=== PATIENT | female | born 1950 | race Caucasian/White ===

== ENCOUNTER 2020-05-30 11:21 | Outpatient (CLI) | payer MEDICARE, SELFPAY ==
[2020-05-30 11:58] LABS: Alanine Aminotransferase 20 U/L (4-35); Albumin Level 4.2 g/dL (3.5-5.1); Alkaline Phosphatase 124 U/L (38-126); Anion Gap 10.9 mmol/L (7-16); Aspartate Amino Transferase 23 U/L (14-36); Bilirubin,Total 0.3 mg/dL (0.2-1.3); Blood Urea Nitrogen 19 mg/dL (7-17); Calcium 9.6 mg/dL (8.4-10.2); Carbon Dioxide 25 mmol/L (22-30); Chloride 111 mmol/L (98-107); Cholesterol 191 mg/dL (0-200); Estimated Glomerular Filt Rate > 60; Glucose 107 mg/dL (65-105); HDL Direct 42 mg/dL; Potassium 3.9 mmol/L (3.4-5.0); Sodium 143 mmol/L (137-145); Triglycerides 175 mg/dL (<150)
[2020-05-30 12:08] LABS: LDL Cholesterol Direct 116 mg/dL
[2020-05-30 13:14] LABS: Vitamin D 25 Hydroxy 29.2 ng/mL
== END 2020-05-30 11:22 | disposition home or self-care (01) ==
LOC: ANHLAB 11:24
PROVIDERS: PCP Nurse Practitioner; Visit Provider Internal Medicine
DX: Z13.6 Encounter for screening for cardiovascular disorders (principal); Z79.899 Other long term (current) drug therapy; E55.9 Vitamin D deficiency, unspecified; E78.5 Hyperlipidemia, unspecified
CPT/HCPCS: 36415; 80053; 80061; 82306

== ENCOUNTER 2022-06-03 11:05 | Emergency (ER) | payer MEDICARE, SELFPAY ==
[2022-06-03] VITALS (12 sets, daily range): BP systolic 90–135; BP diastolic 60–77; PULSE 70–75; RESP 14–17; TEMP 36.3; O2SAT 96–100
--- NOTE | ~2022-06-03 | XR_ITS ---
EXAMINATION: XR abdomen/kub 1V DATE: 06/03/2022 15:15 INDICATION: Urolithiasis presenting with right-sided flank pain TECHNIQUE: A supine view of the abdomen on 2 radiographs was obtained. COMPARISON: KUB dated 08/06/[address] dated 06/22/2017 FINDINGS: 9 stones at the left kidney the largest measuring 5 mm . There are 3 new calcific lesions each measur ing 405 mm located along the course of the distal right ureter consistent with ureteral stones. More proximally at the level of the right pelvic brim are couple unchanged phleboliths along the right [place] vein. A few unchanged tiny calcification in the left hemipelvis likely combination of atheroscle rotic calcification and phleboliths. Normal bowel gas pattern. Lung bases are clear. Visualized bilat eral breast implants. Severe thoracolumbar spondylosis. IMPRESSION: 1. Left nephrolithiasis and three 4-5 mm distal right ureteral stones Reviewed, dictated and finalized at location A.
[2022-06-03 12:10] LABS: Appearance Urine Clear (Clear); Basophils Absolute Auto 0.1 K/mm3 (0.0-0.1); Basophils Percent Auto 0.5 % (0.2-1.2); Bilirubin Urine Negative (Negative); Blood Urine Negative (Negative); Color Urine Yellow (Yellow); Eosinophils Absolute Auto 0.2 K/mm3 (0-0.3); Eosinophils Percent Auto 1.7 % (0-4.4); Glucose Urine UA Negative (Negative); Hematocrit 37.4 % (37.0-47.0); Hemoglobin 11.8 g/dL (12.0-15.0); Immature Granulocyte Absolute 0.04 K/mm3 (0.00-0.031); Immature Granulocyte Percent A 0.4 % (0-0.5); Ketones Urine Negative (Negative); Leukocyte Esterase Ur 1+ LEU/UL (Negative); Lymphocytes Absolute Auto 2.09 K/mm3 (0.9-3.2); Lymphocytes Percent Auto 20.6 % (18.3-44.2); Mean Corpuscular HGB Conc 31.6 g/dl (32-36); Mean Corpuscular Hemoglobin 30.6 pg (26-34); Mean Corpuscular Volume 96.9 fl (80-100); Mean Platelet Volume 9.8 fl (7.4-10.4); Monocytes Absolute Auto 0.5 K/mm3 (0.1-0.6); Monocytes Percent Auto 4.8 % (2.6-8.5); Neutrophils Absolute Auto 7.3 K/mm3 (1.3-6.7); Nitrate Urine Negative (Negative); Platelet Count Result 246 k/mm3 (150-375); Protein Urine Negative (Negative); Red Blood Count 3.86 M/mm3 (4.2-5.4); Red Cell Distribution Width 13.3 % (11.5-14.5); Specific Grav Ur 1.025 (1.001-1.035); Urobilinogen Urine 0.2 mg/dL (<2.0); White Blood Count 10.1 K/mm3 (4.5-10.0)
[2022-06-03 12:14] LABS: Mucus Urine Rare /lpf; Squamous Epithelial Cell Urine Few /hpf (Few); WBC Urine 16-20 /hpf
[2022-06-03 12:15] LABS: Add Urine Microscopic? YES
[2022-06-03 12:26] LABS: Alanine Aminotransferase 17 U/L (6-35); Albumin Level 4.4 g/dL (3.5-5.1); Alkaline Phosphatase 105 U/L (38-126); Anion Gap 8 mmol/L (8-16); Aspartate Amino Transferase 26 U/L (14-36); Bilirubin,Total 0.5 mg/dL (0.2-1.3); Blood Urea Nitrogen 19 mg/dL (7-17); Calcium 9.4 mg/dL (8.4-10.2); Carbon Dioxide 28 mmol/L (22-30); Chloride 106 mmol/L (98-107); Estimated CRCL calculation 57 ml/min; Estimated Glomerular Filt Rate > 60; Glucose 106 mg/dL (65-110); Potassium 4.5 mmol/L (3.4-5.0); Sodium 142 mmol/L (137-145)
[2022-06-03] MEDS: SODIUM CHLORIDE 0.9% IV 500 ML 999 ML IV CONT (14:53)
--- NOTE | 2022-06-03 15:03 | ED.FEMALEGU ---
HPI - Female Genitourinary General Chief complaint: Urogenital-Female Stated complaint: R. flank pain Time Seen by Provider: 06/03/22 14:42 Source: patient Mode of arrival: ambulatory Limitations: no limitations History of Present Illness HPI Narrative: This is a 71-year-old female that presents to the emergency department for right-sided flank pain ongoing over the last 3 days. Associated with nausea. Reports she was evaluated at [facility] and found to have multiple kidney stones on the right. Discharged with oral pain medication and Flomax. She was supposed to follow-up with Dr. Scott in clinic today. She called and told him how much pain she was and and she was prompted to be seen in the ER instead. Denies fevers or dysuria. Related Data Home Medications Medication Instructions Recorded Confirmed cholecalciferol (vitamin D3) 50 50 mcg PO DAILY 10/04/20 09/29/21 mcg (2,000 unit) capsule Allergies Allergy/AdvReac Type Severity Reaction Status Date / Time duloxetine [From Cymbalta] AdvReac Severe Vomiting Verified 06/03/22 14:54 Review of Systems Review of Systems: CONSTITUTIONAL: Denies fever GASTROINTESTINAL: Reports abdominal pain, nausea. Denies vomiting GENITOURINARY: Denies dysuria or hematuria. All systems reviewed & are unremarkable except as noted in HPI and below PMFSH Past Medical History Medical History Depression GERD (gastroesophageal reflux disease) History of heart attack on EKG, never had symptoms or intervention Hyperlipidemia IBS (irritable bowel syndrome) Postmenopausal Renal stones Screening for breast cancer Screening for colon cancer Family History Family History Mother Hypertension Cerebrovascular accident Family history of malignant neoplasm of cervix Father Cerebrovascular accident Malignant neoplasm of prostate Social History Social History Smoking status: Never smoker Second hand tobacco smoke exposure: Yes Alcohol intake: current Alcohol use details: Social Substance use: never Substance use type: does not use Gender identity (if verbalized by the patient): Female Exam Narrative: GENERAL: Well-appearing, well-nourished, and in no acute distress. HEAD: Normocephalic, atraumatic. EYES: EOMI. CHEST: Clear to auscultation. No respiratory distress. No wheezes rales or rhonchi HEART: Regular rate and rhythm. No murmur heard. Normal peripheral pulses. ABDOMEN: Soft, nontender, nondistended, normal active bowel sounds. EXTREMITIES: Normal range of motion. No edema. SKIN: Warm, dry, no rash. NEURO: No focal deficits. Alert and oriented x3. PSYCH: Normal mood and affect Course Consultations Consultation #1: Spoke with Dr. Bertrand about patient and work-up. Patient will be discharged home tonight. Will be called in the morning for OR schedule for further management of her stones. Date: 06/03/22 Vital Signs Vital signs: Vital Signs Pulse Rate 75 06/03/22 11:47 Respiratory Rate 17 06/03/22 11:47 Blood Pressure 90/77 L 06/03/22 11:47 Pulse Oximetry 100 06/03/22 11:47 Oxygen Delivery Room Air 06/03/22 11:47 Temperature 97.3 F L 06/03/22 15:05 Pulse Rate 70 06/03/22 14:55 Respiratory Rate 14 06/03/22 14:55 Blood Pressure 129/62 06/03/22 14:55 Pulse Oximetry 100 06/03/22 14:55 Oxygen Delivery Room Air 06/03/22 11:47 MDM - Female Genitourinary MDM Narrative Medical decision making narrative: Patient presents to the emergency department for known kidney stones with worsening pain. She is afebrile and nontoxic-appearing. Her vitals are stable. CBC and metabolic panel without concerning findings. UA with 16-20 white blood cells and 3-5 red blood cells. This will be sent for culture. Patient given a dose of Rocephin in the ED
[2022-06-03 15:14] LABS: Lactic Acid Reflex 0.7 mmol/L (0.7-2.0)
[2022-06-03] MEDS: ONDANSETRON INJ 4 MG/2 ML VIAL IV PUSH (15:17)
[2022-06-03] MEDS: MORPHINE SULFATE (*CRX) 2 MG/ML INJ IV PUSH (15:17)
--- NOTE | 2022-06-03 18:24 | WPDURCON ---
Assessment and Plan Assessment and plan (1) Right ureteral calculus: Code(s): N20.1 - Calculus of ureter Status: Acute Plan 71-year-old female with a history of nephrolithiasis appears to be passing multiple stones in her right distal ureter. -the patient was given pain medication with some improvement. She will be discharged home with plan for right ureteral stent insertion with likely right ureteroscopy, laser lithotripsy and stone extraction in the near future. Urology Consult Note HPI Date Seen: 06/03/22 Requesting Physician: Emergency department physician- Tomasa Primary Care Provider: Alan Pelaez DO Consult Narrative Narrative: Joy Lyons is a 71 year old female with history nephrolithiasis. She presented to outside facility and found to have multiple right-sided distal ureteral stones. The patient continued to have right-sided flank pain therefore presented to [facility] Emergency Department for evaluation. She denies fevers or chills. [facility] Past Medical History Medical History (Updated 06/03/22 @ 18:27 by Brock Bertrand MD) Depression GERD (gastroesophageal reflux disease) History of heart attack on EKG, never had symptoms or intervention Hyperlipidemia IBS (irritable bowel syndrome) Postmenopausal Renal stones Right ureteral calculus Screening for breast cancer Screening for colon cancer Family History Family History Mother Hypertension Cerebrovascular accident Family history of malignant neoplasm of cervix Father Cerebrovascular accident Malignant neoplasm of prostate Social History Social History Smoking status: Never smoker Second hand tobacco smoke exposure: Yes Alcohol intake: current Alcohol use details: Social Substance use: never Substance use type: does not use Gender identity (if verbalized by the patient): Female Meds Home Medications and Allergies Home Medications Medication Instructions Recorded Confirmed Type cholecalciferol (vitamin D3) 50 50 mcg PO DAILY 10/04/20 09/29/21 History mcg (2,000 unit) capsule tramadol 50 mg tablet 50 mg PO Q8H PRN pain #90 tabs 04/04/21 09/29/21 Rx hydroxyzine HCl 25 mg tablet 25 mg PO BID PRN itching #60 tabs 10/06/21 Rx atorvastatin 80 mg tablet (Lipitor) 80 mg PO HS #90 tabs 10/13/21 Rx lorazepam 0.5 mg tablet 0.5 mg PO DAILY PRN anxiety #30 10/13/21 Rx tabs Allergies Allergy/AdvReac Type Severity Reaction Status Date / Time duloxetine [From Cymbalta] AdvReac Severe Vomiting Verified 06/03/22 14:54 Vital Signs Vital Signs - 24 hr 06/03/22 11:47 06/03/22 14:55 06/03/22 15:05 Temperature 36.3 C L Pulse Rate 75 70 Respiratory Rate 17 14 Blood Pressure 90/77 L 129/62 Pulse Oximetry 100 100 Oxygen Delivery Room Air 06/03/22 14:42 06/03/22 14:45 06/03/22 14:46 Temperature Pulse Rate Respiratory Rate Blood Pressure 129/62 Pulse Oximetry 100 98 97 Oxygen Delivery 06/03/22 15:20 06/03/22 16:40 06/03/22 16:55 Temperature Pulse Rate Respiratory Rate Blood Pressure Pulse Oximetry 100 99 98 Oxygen Delivery 06/03/22 17:00 06/03/22 17:01 06/03/22 17:15 Temperature Pulse Rate Respiratory Rate Blood Pressure 135/60 Pulse Oximetry 96 96 98 Oxygen Delivery Exam Narrative: Awake and alert, no acute distress. Breathing unlabored. Abdomen soft nontender nondistended. No current CVA tenderness Results Labs CBC & Chem 7: 06/03/22 11:59 06/03/22 11:59 Labs: Short CBC 06/03/22 Range/Units 11:59 WBC 10.1 H (4.5-10.0) K/mm3 Hgb 11.8 L (12.0-15.0) g/dL Hct 37.4 (37.0-47.0) % Plt Count 246 (150-375) k/mm3 [facility] 06/03/22 11:59 Sodium 142 Potassium 4.5 Chloride 106 Carbon Dioxide 28 BUN 19 H Creatinine 0.90 Glucose 106
== END 2022-06-03 17:30 | disposition home or self-care (01) ==
PROVIDERS: Physician Assistant; Emergency Provider Emergency Medicine; PCP Internal Medicine
DX: N20.1 Calculus of ureter (principal); F32.9 Major depressive disorder, single episode, unspecified; K21.9 Gastro-esophageal reflux disease without esophagitis
CPT/HCPCS: 36415; 74018; 80053; 81001; 83605; 85025; 87086; 96365; 96375; 99284; J0131; J0696; J2270; J2405; J7040

== ENCOUNTER 2022-06-04 00:13 | Day surgery (SDC) | payer MEDICARE, SELFPAY ==
[2022-06-04] VITALS (7 sets, daily range): BP systolic 131–149; BP diastolic 58–76; PULSE 64–88; RESP 12–16; TEMP 36.7–36.9; O2SAT 98–100; BMI 32.3
--- NOTE | ~2022-06-04 | XR_ITS ---
EXAMINATION: XR fluoroscopy no charge DATE: 06/04/2022 14:36 INDICATION: Right ureteral stone. TECHNIQUE: 3 intraoperative fluoroscopic views of the abdomen and pelvis were obtained. I was not pre sent. Fluoroscopy exposure time was 8 seconds. COMPARISON: CT abdomen and pelvis 06/22/2017, abdomen radiographs 06/03/2022 FINDINGS: There is a stone in the left kidney. There is a stone in distal right ureter. Other stones in the distal right ureter seen on the prior radiograph are not visible. After extraction, the distal right ureteral stone is no longer visible. There is a phlebolith in right ovarian vein. IMPRESSION: 1. Distal right ureteral stone extraction. Reviewed, dictated and finalized at location A.
--- NOTE | 2022-06-04 07:08 | WPDHPUPDATE1 ---
History and Physical Update Update Date/Time: 06/04/22 07:08 History and Physical has been reviewed, including an updated exam of the patient. There are NO changes in the patient's condition. Risks, benefits, and alternatives have been discussed and questions answered. Patient agrees to proceed with procedure.
--- NOTE | 2022-06-04 07:08 | PM.HPGS ---
History of Present Illness History of Present Illness Consent: Risks, benefits, and alternatives have been discussed and questions answered. Patient agrees to proceed with procedure. Chief complaint: right kidney stones Narrative: Joy Lyons is a 71 year old female, withHistory of multiple renal and ureteral stones in the past, was in the ER in [place] yesterday with acute right renal colic. She reports nausea but no vomiting. She has had no fevers chills or gross hematuria. Imaging demonstrates either 2 or 3 contiguous right distal ureteral calculi. After discussion of options she has elected to proceed with cystoscopy with right ureteroscopy, stone extraction with possible laser lithotripsy and stent placement. She is aware the risk including, but not limited to, adverse cardiopulmonary events, ureteral injury, need for a stent. Review of Systems Cardiovascular: Cardiovascular: Denies chest pain, Denies lightheadedness, Denies palpitations and Denies dyspnea Respiratory: Respiratory: Denies dyspnea Gastrointestinal: Gastrointestinal: Denies diarrhea, Denies nausea and Denies vomiting Genitourinary: Genitourinary: Denies hematuria and Denies dysuria Endocrine: Endocrine: Denies palpitations [facility] Past Medical History Medical History (Updated 06/04/22 @ 00:00 by Background Daemon) Depression GERD (gastroesophageal reflux disease) History of heart attack on EKG, never had symptoms or intervention Hyperlipidemia IBS (irritable bowel syndrome) Postmenopausal Renal stones Right ureteral calculus Screening for breast cancer Screening for colon cancer Family History Family History Mother Hypertension Cerebrovascular accident Family history of malignant neoplasm of cervix Father Cerebrovascular accident Malignant neoplasm of prostate Social History Social History Smoking status: Never smoker Second hand tobacco smoke exposure: Yes Alcohol intake: current Alcohol use details: Social Substance use: never Substance use type: does not use Gender identity (if verbalized by the patient): Female Meds Home Medications and Allergies Home Medications Medication Instructions Recorded Confirmed Type cholecalciferol (vitamin D3) 50 50 mcg PO DAILY 10/04/20 09/29/21 History mcg (2,000 unit) capsule tramadol 50 mg tablet 50 mg PO Q8H PRN pain #90 tabs 04/04/21 09/29/21 Rx hydroxyzine HCl 25 mg tablet 25 mg PO BID PRN itching #60 tabs 10/06/21 Rx atorvastatin 80 mg tablet (Lipitor) 80 mg PO HS #90 tabs 10/13/21 Rx lorazepam 0.5 mg tablet 0.5 mg PO DAILY PRN anxiety #30 10/13/21 Rx tabs Allergies Allergy/AdvReac Type Severity Reaction Status Date / Time duloxetine [From Cymbalta] AdvReac Severe Vomiting Verified 06/03/22 14:54 Exam Const: General: no acute distress Resp: Effort & Inspection: normal respiratory effort GI: Inspection: non-distended GI Palp: No abdominal tenderness and No Guarding due to palpation present (GI) Auscultation: normal bowel sounds Assessment and Plan Assessment and plan (1) Right ureteral calculus: Code(s): N20.1 - Calculus of ureter Status: Acute Assessment and Plan: Cystoscopy with right ureteroscopy, stone extraction with possible laser lithotripsy and stent placement
--- NOTE | 2022-06-04 07:40 | PC.NURSE ---
Report to the Outpatient Waiting Room, entrance under the green pavilion located off [facility], at time _1200_ on date _[id number]_. OR Time: _1400_. - You and your visitor will be asked a series of questions to screen for COVID 19 for your protection. - Only one visitor is allowed at this time. - The patient visitor is requested to leave or wait in car when not with patient. - A mask is required within the hospital. Patients may have clear liquids (water, carbonated beverages, clear teas, apple juice) until 3 hours prior to surgery with a maximum of 20 ounces. - No food from midnight until time of surgery Take the following medications with a SIP of water the morning of surgery: __Encouraged to take a pain pill now. Medications to discontinue per physician Date to take last dose Please no make-up, nail guinean, hairspray, perfume, deodorant, or body powder the day of surgery. No jewelry (including any body piercings) or valuables the day of surgery, leave them at home. Please take a shower or bath the night before, or the morning of, surgery with an antibacterial soap. Wear comfortable, loose fitting clothing. - Jewelry must be removed prior to entering the operating room. Rings and piercings that are not removed may be cut off. - The hospital will not accept responsibility for valuables. - Please leave all valuables, including medications, at home the day of surgery. If you are going home after surgery, a licensed professional driver must drive you home. - NO public transportation without another adult. - We recommend that an adult stay with you for 24 hours following discharge. - We also recommend that you do not drive, make important decision, drink alcoholic beverages, or take any drugs that were not prescribed by your health care provider for at least 24 hours after your discharge time. Follow any additional instructions given to you from your surgeon. If you or anyone in your household have experienced Covid symptoms in the past week, please notify your surgeon or the nurse liaison at the phone number below for possible testing. Telephone instructions given to __Patient___and asked if any additional questions and then verbalized understanding. Patient advised to call surgeon office or pre surgery nurse liaison [phone] if any additional questions.
[2022-06-04] MEDS: LACTATED RINGERS 1,000 ML 30 ML IV CONT ×2 (12:30→14:40)
--- NOTE | 2022-06-04 12:34 | P.PNAN_ITS ---
Anes - Initial Pre Proc Eval Procedure: Operation Date: 06/04/22 14:00 Proposed Procedures p Cystoscopy, Right Ureteroscopy, Right Retrograde Pyelogram, Right Stone Extraction, Right Stent Placement, Possible Holmium Laser Procedure - Bruce Scott MD Date/Time: 06/04/22 12:34 Surgeon: Bruce Scott MD Pre Op Diagnosis: right kidney stones Patient Data Age: 71 Gender: F Height: 1.68 m Weight: 90.9 kg Allergies Allergy/AdvReac Type Severity Reaction Status Date / Time duloxetine [From Cymbalta] AdvReac Severe Vomiting Verified 06/04/22 12:26 Home Medications Medication Instructions Recorded Confirmed Type cholecalciferol (vitamin D3) 50 50 mcg PO DAILY 10/04/20 06/04/22 History mcg (2,000 unit) capsule tramadol 50 mg tablet 50 mg PO Q8H PRN pain #90 tabs 04/04/21 06/04/22 Rx hydroxyzine HCl 25 mg tablet 25 mg PO BID PRN itching #60 tabs 10/06/21 06/04/22 Rx atorvastatin 80 mg tablet (Lipitor) 80 mg PO HS #90 tabs 10/13/21 06/04/22 Rx lorazepam 0.5 mg tablet 0.5 mg PO DAILY PRN anxiety #30 10/13/21 06/04/22 Rx tabs oxycodone-acetaminophen 5 mg-325 1 tablet PO Q8H PRN Pain 06/04/22 06/04/22 History mg tablet vit A 7,160 unit-vit C 113 mg-vit 1 tablet PO DAILY 06/04/22 06/04/22 History E 100 [id number] tablet Patient hx anesthesia problems: none Family hx anesthesia problems: none Results Review: All pre-operative results and documents have been reviewed as part of the pre- operative evaluation. [facility] Past Medical History Medical History (Updated 06/04/22 @ 00:00 by Darrick Doe) Depression GERD (gastroesophageal reflux disease) History of heart attack on EKG, never had symptoms or intervention Hyperlipidemia IBS (irritable bowel syndrome) Postmenopausal Renal stones Right ureteral calculus Screening for breast cancer Screening for colon cancer Family History Family History Mother Hypertension Cerebrovascular accident Family history of malignant neoplasm of cervix Father Cerebrovascular accident Malignant neoplasm of prostate Social History Social History Smoking status: Never smoker Second hand tobacco smoke exposure: Yes Alcohol intake: current Alcohol use details: Social Substance use: never Substance use type: does not use Living arrangements: alone Gender identity (if verbalized by the patient): Female Spiritual care concerns: No Anes - Eval Final PreProcedure Day of Procedure 06/04/22 12:34 Patient weight: obese Heart: regular rate and rhythm Lungs: clear to auscultation and normal air movement Airway: Mallampati scale class II Neurological: alert and oriented Last oral intake: >/= 8 hours ASA classification: III Emergent: no Anesthetic plan: proceed Anesthesia type and monitoring: general LMA and standard monitoring Results Review: All pre-operative results and documents have been reviewed as part of the pre- operative evaluation. Informed Consent: The patient's anesthetic plan and its attendant risks and benefits were discussed with the patient/family/POA. Questions were solicited and answers provided to the satisfaction of the patient/family/POA.
[2022-06-04] MEDS: fentaNYL CITRATE INJ (*CRX) 100 MCG/2 ML VIAL 50 MCG IV PUSH (12:35)
[2022-06-04] MEDS: ceFAZolin 2 GM/D5W 50 ML 2 GM/50 ML BAG IVPB (14:09)
[2022-06-04] MEDS: KETOROLAC 15 MG/ML VIAL (*BKC) IV PUSH (14:31)
--- NOTE | 2022-06-04 14:32 | W.PM.PROC2 ---
Procedure Note - Detailed Date of Procedure 06/04/22 Pre-op Diagnosis Right ureteral stones Post-op Diagnosis Same Procedure Performed Cystoscopy with right ureteral stone extraction x3 Surgeon Bruce Scott MD Findings 3 small right distal ureteral calculi Description of Procedure The patient was brought to the operative suite where she is prepped and draped in a routine sterile fashion while in the dorsal lithotomy position after the uneventful induction of a general LMA anesthetic. A 19F rigid cystoscope was placed in the bladder. The patient had no evidence of urethral stricture or bladder neck contracture. The bladder mucosa was endoscopically normal without hyperemia or neoplasm. There was a single, orthotopic ureteral orifice bilaterally. A 0.035 glidewire was advanced into the right renal pelvis under fluoroscopy. The distal ureter was dilated with an 8F/10F ureteral dilator. Ureteroscopy was undertaken with a short, tapered, semi-rigid ureteroscope and each of 3 small stones were extracted with ease using a 1.9F Escape disposable stone basket. Due to the ease of this manipulation I opted not to place a ureteral stent. The patient's bladder was emptied and she was taken to the recovery room having tolerated this procedure well. Drains No Pathology Yes Complications No immediate complications Condition Stable Disposition PACU
[2022-06-04] MEDS: oxyCODONE HCL (*CRX) 5 MG TAB IR PO (16:25)
== END 2022-06-04 16:46 | disposition home or self-care (01) ==
PROVIDERS: PCP Internal Medicine; Visit Provider Urology
PROC: (CPT 52352; principal; 2022-06-04 14:00)
DX: N20.1 Calculus of ureter (principal); E78.5 Hyperlipidemia, unspecified; I25.2 Old myocardial infarction; K21.9 Gastro-esophageal reflux disease without esophagitis; F32.A Depression, unspecified; K58.9 Irritable bowel syndrome, unspecified; E66.9 Obesity, unspecified; Z68.32 Body mass index [BMI] 32.0-32.9, adult
CPT/HCPCS: 52352; 82365; 88300; 99199; A9270; C1769; J0690; J1100; J1885; J2370; J2405; J2704; J2765; J3010; J7120

== ENCOUNTER 2022-09-07 12:40 | Outpatient (CLI) | payer MEDICARE, SELFPAY ==
[2022-09-07 13:05] LABS: Basophils Percent Auto 0.4 % (0.2-1.2); Eosinophils Absolute Auto 0.1 K/mm3 (0-0.3); Eosinophils Percent Auto 1.4 % (0-4.4); Hematocrit 37.8 % (37.0-47.0); Hemoglobin 12.2 g/dL (12.0-15.0); Immature Granulocyte Absolute 0.04 K/mm3 (0.00-0.031); Immature Granulocyte Percent A 0.4 % (0-0.5); Lymphocytes Absolute Auto 2.45 K/mm3 (0.9-3.2); Lymphocytes Percent Auto 23.8 % (18.3-44.2); Mean Corpuscular HGB Conc 32.3 g/dl (32-36); Mean Corpuscular Hemoglobin 29.6 pg (26-34); Mean Corpuscular Volume 91.7 fl (80-100); Mean Platelet Volume 9.3 fl (7.4-10.4); Monocytes Absolute Auto 0.5 K/mm3 (0.1-0.6); Monocytes Percent Auto 4.9 % (2.6-8.5); Neutrophils Absolute Auto 7.1 K/mm3 (1.3-6.7); Neutrophils Percent Auto 69.1 % (45.5-73.1); Platelet Count Result 290 k/mm3 (150-375); Red Blood Count 4.12 M/mm3 (4.2-5.4); Red Cell Distribution Width 12.9 % (11.5-14.5); White Blood Count 10.3 K/mm3 (4.5-10.0)
[2022-09-07 13:15] LABS: Magnesium 1.8 mg/dL (1.6-2.3)
== END 2022-09-07 12:41 | disposition home or self-care (01) ==
PROVIDERS: PCP Internal Medicine; Visit Provider Internal Medicine
DX: R53.83 Other fatigue (principal); M79.606 Pain in leg, unspecified
CPT/HCPCS: 36415; 83735; 84443; 85025

== ENCOUNTER 2023-04-05 10:44 | Day surgery (SDC) | payer MEDICARE, SELFPAY ==
[2023-03-19 08:52] VITALS: BMI 31.5
[2023-03-30 08:20] VITALS: BMI 31.3
--- NOTE | 2023-04-05 08:56 | WPDANESEPPF ---
Anes - Initial Pre Proc Eval Procedure: Operation Date: 04/05/23 12:30 Proposed Procedures p Diagnostic Colonoscopy - Mick Gan MD Date/Time: 04/05/23 08:56 Surgeon: Mick Gan MD Pre Op Diagnosis: Positive Cologuard Patient Data Age: 72 Gender: F Height: 1.68 m Weight: 88 kg Allergies Allergy/AdvReac Type Severity Reaction Status Date / Time duloxetine [From Cymbalta] AdvReac Severe Vomiting Verified 03/30/23 08:26 Home Medications Medication Instructions Recorded Confirmed Type cholecalciferol (vitamin D3) 50 50 mcg PO DAILY 10/04/20 03/30/23 History mcg (2,000 unit) capsule vit A 7,160 unit-vit C 113 mg-vit 1 tablet PO DAILY 06/04/22 03/30/23 History E 100 [id number] tablet hydroxyzine HCl 25 mg tablet 25 mg PO BID PRN itching #60 tabs 02/26/23 03/30/23 Rx atorvastatin 80 mg tablet (Lipitor) 80 mg PO HS #90 tabs 03/16/23 03/30/23 Rx sodium,potassium,mag sulfates 17.5 See Rx Instructions PO .COMPLEX 03/19/23 Rx gram-3.13 gram-1.6 gram oral soln #354 mL (Suprep Bowel Prep Kit) pantoprazole 40 mg tablet,delayed 40 mg PO QAM #30 tabs 03/22/23 03/30/23 Rx release (Protonix) tramadol 50 mg tablet 50 mg PO Q8H PRN pain #90 tabs 03/22/23 03/30/23 Rx lorazepam 0.5 mg tablet 0.5 mg PO HS PRN anxiety 03/30/23 03/30/23 History potassium citrate 10 mEq (1,080 10 meq PO BID 03/30/23 03/30/23 History mg) tablet,extended release Patient hx anesthesia problems: none Family hx anesthesia problems: none Results Review: All pre-operative results and documents have been reviewed as part of the pre-operative evaluation. [facility] Past Medical History Medical History (Updated 04/05/23 @ 08:58 by Vic Sinclair MD) Depression GERD (gastroesophageal reflux disease) History of heart attack on EKG, never had symptoms or intervention Hyperlipidemia IBS (irritable bowel syndrome) Obesity Postmenopausal Renal stones Right ureteral calculus Screening for breast cancer Screening for colon cancer Family History Family History Mother Hypertension Cerebrovascular accident Family history of malignant neoplasm of cervix Father Cerebrovascular accident Malignant neoplasm of prostate Social History Social History Smoking status: Never smoker Second hand tobacco smoke exposure: Yes Alcohol intake: current Drinks per week: 1 Alcohol use details: Social, occasionally Substance use: never Substance use type: does not use Lack of Transportation: No Lack of Food: Never True Current Housing: I Have Housing Concerned About Future Housing: No Difficulty Paying Gas/Electric Bills: No Difficulty Paying for Meds: No Currently Unemployed: No Education: High School Diploma/GED Difficulty w/ Childcare or Family Care: No Living arrangements: alone Gender identity (if verbalized by the patient): Female Spiritual care concerns: No Anes - Eval Final PreProcedure Day of Procedure 04/05/23 08:56 Patient weight: obese Heart: regular rate and rhythm Lungs: clear to auscultation and normal air movement Airway: Mallampati scale class II Neurological: alert and oriented Last oral intake: >/= 8 hours ASA classification: III Emergent: no Anesthetic plan: proceed Anesthesia type and monitoring: general GIVS and standard monitoring Results Review: All pre-operative results and documents have been reviewed as part of the pre-operative evaluation. Informed Consent: The patient's anesthetic plan and its attendant risks and benefits were discussed with the patient/family/POA. Questions were solicited and answers provided to the satisfaction of the patient/family/POA.
[2023-04-05 11:14] VITALS: BMI 30.4
[2023-04-05 11:22] VITALS: BP 125/79; PULSE 87; RESP 18; TEMP 37.3; O2SAT 99
[2023-04-05] MEDS: LACTATED RINGERS 1,000 ML 150 ML IV CONT (11:35)
--- NOTE | 2023-04-05 11:51 | PM.HPGS ---
History of Present Illness History of Present Illness Consent: Risks, benefits, and alternatives have been discussed and questions answered. Patient agrees to proceed with procedure. Chief complaint: Positive Cologuard Narrative: Joy Lyons is a 72 year old female Presents for screening colonoscopy. Patient's current weight appetite and bowel movements are normal. Patient denies abdominal pain. She has had no bleeding. Family history noncontributory. Recent Cologuard test was performed and found to be positive. For this reason patient presents for colonoscopy. Review of Systems Review of Systems: Review of systems noncontributory. FORMERLY [facility], [facility] Past Medical History Medical History (Updated 04/05/23 @ 08:58 by Vic Sinclair MD) Depression GERD (gastroesophageal reflux disease) History of heart attack on EKG, never had symptoms or intervention Hyperlipidemia IBS (irritable bowel syndrome) Obesity Postmenopausal Renal stones Right ureteral calculus Screening for breast cancer Screening for colon cancer Family History Family History Mother Hypertension Cerebrovascular accident Family history of malignant neoplasm of cervix Father Cerebrovascular accident Malignant neoplasm of prostate Social History Social History Smoking status: Never smoker Second hand tobacco smoke exposure: Yes Alcohol intake: current Drinks per week: 1 Alcohol use details: Social, occasionally Substance use: never Substance use type: does not use Lack of Transportation: No Lack of Food: Never True Current Housing: I Have Housing Concerned About Future Housing: No Difficulty Paying Gas/Electric Bills: No Difficulty Paying for Meds: No Currently Unemployed: No Education: High School Diploma/GED Difficulty w/ Childcare or Family Care: No Living arrangements: alone Gender identity (if verbalized by the patient): Female Spiritual care concerns: No Meds Home Medications and Allergies Home Medications Medication Instructions Recorded Confirmed Type cholecalciferol (vitamin D3) 50 50 mcg PO DAILY 10/04/20 04/05/23 History mcg (2,000 unit) capsule vit A 7,160 unit-vit C 113 mg-vit 1 tablet PO DAILY 06/04/22 04/05/23 History E 100 uubq-jxjp-eoeiek tablet hydroxyzine HCl 25 mg tablet 25 mg PO BID PRN itching #60 tabs 02/26/23 04/05/23 Rx atorvastatin 80 mg tablet (Lipitor) 80 mg PO HS #90 tabs 03/16/23 04/05/23 Rx sodium,potassium,mag sulfates 17.5 See Rx Instructions PO .COMPLEX 03/19/23 Rx gram-3.13 gram-1.6 gram oral soln #354 mL (Suprep Bowel Prep Kit) pantoprazole 40 mg tablet,delayed 40 mg PO QAM #30 tabs 03/22/23 04/05/23 Rx release (Protonix) tramadol 50 mg tablet 50 mg PO Q8H PRN pain #90 tabs 03/22/23 04/05/23 Rx lorazepam 0.5 mg tablet 0.5 mg PO HS PRN anxiety 03/30/23 04/05/23 History potassium citrate 10 mEq (1,080 10 meq PO BID 03/30/23 04/05/23 History mg) tablet,extended release Allergies Allergy/AdvReac Type Severity Reaction Status Date / Time duloxetine [From Cymbalta] AdvReac Severe Vomiting Verified 03/30/23 08:26 Vital Signs Vital Signs - 24 hr 04/05/23 11:22 Temperature 99.1 F Pulse Rate 87 Respiratory Rate 18 Blood Pressure 125/79 Pulse Oximetry 99 Oxygen Delivery Room Air Exam Narrative: Physical exam reveals patient to be alert. Vital signs stable. HEENT exam is unremarkable. Patient is anicteric. Lungs are clear to auscultation and percussion. Heart is without murmur or extra sounds. Abdomen bowel sounds are present soft nontender with no organomegaly. Digital external rectal exam is normal. Assessment and Plan Assessment and plan (1) Positive colorectal cancer screening using Cologuard test: Code(s): R19.5 - Other fecal abnormalities Status: Acute Assessment and Plan:
[2023-04-05] MEDS: SIMETHICONE ORAL SUSPENSION 20 MG/0.3 ML 30 ML BOTTLE 0.6 ML IRRIGATION (12:18)
[2023-04-05 12:26] VITALS: BP 92/56; PULSE 70; RESP 16; O2SAT 98
[2023-04-05 12:36] VITALS: BP 112/66; PULSE 82; RESP 20; O2SAT 100
[2023-04-05 12:46] VITALS: BP 121/70; PULSE 77; RESP 20; O2SAT 99
--- NOTE | 2023-04-05 13:23 | WPDANESPN ---
Anes - Prog Note Post-Op Date/Time: 04/05/23 13:23 Cardiovascular status: normal Respiratory status: normal Airway patency: baseline Mental status: baseline Post-Op hydration status: normal Vital Signs: Last Vital Signs Temp 37.3 C 04/05/23 11:22 Pulse 77 04/05/23 12:46 Resp 20 04/05/23 12:46 BP 121/70 04/05/23 12:46 Pulse Ox 99 04/05/23 12:46 O2 Del Method Room Air 04/05/23 12:46 Pain Score (VAS): 0 I/O: Intake & Output 04/04/23 04/05/23 04/05/23 23:59 07:59 15:59 Intake Total 350 Balance 350 Post-procedural complaints: none Patient Feedback: Patient satisfied with anesthetic care.
== END 2023-04-05 13:03 | disposition home or self-care (01) ==
PROVIDERS: PCP Nurse Practitioner; Visit Provider Internal Medicine Gastroenterology
PROC: 0DJD8ZZ Inspection of Lower Intestinal Tract, Via Natural or Artificial Opening Endoscopic (ICD-10-PCS; CPT 45378; principal; 2023-04-05 12:30)
DX: R19.5 Other fecal abnormalities (principal)
CPT/HCPCS: 45385

== ENCOUNTER 2023-10-28 08:29 | Outpatient (CLI) | payer MEDICARE, SELFPAY ==
--- NOTE | ~2023-10-28 | XR_ITS ---
EXAMINATION: XR UGIAC wo kub DATE: 10/28/2023 10:12 INDICATION: 2 months of epigastric pain TECHNIQUE: The patient drank thick barium, gas-producing crystals, and thin barium. A total of 677 fl uoroscopic images of the esophagus, stomach, and proximal small bowel were obtained. Fluoroscopy expo sure time was 2.3 minutes. Total DAP was 4.3 Gycm^2 COMPARISON: None. FINDINGS: The esophagus is normal without mass or stricture. Normal primary and secondary peristaltic waves but with some superimposed tertiary contractions in the distal half of the esophagus. There is a small sliding-type hiatal hernia. There was no gastroesophageal reflux with provocative maneuvers. There is suggestion of a couple shallow erosions along the lesser curvature of the stomach. Proximal small bowel is normal. IMPRESSION: 1. Small sliding-type hiatal hernia without evident reflux with provocative maneuvers. 2. Suggestion of a couple shallow erosions along the lesser curvature of the stomach. 3. Mild esophageal dysmotility with tertiary contractions in the distal esophagus. Reviewed, dictated and finalized at location [facility]. [facility] IMPRESSION: 1. Small sliding-type hiatal hernia without evident reflux with provocative man euvers. 2. Suggestion of a couple shallow erosions along the lesser curvature of the st omach. 3. Mild esophageal dysmotility with tertiary contractions in the distal esophag us.
== END 2023-10-28 08:30 | disposition home or self-care (01) ==
PROVIDERS: PCP Nurse Practitioner; Visit Provider Nurse Practitioner
DX: K44.9 Diaphragmatic hernia without obstruction or gangrene (principal); K22.4 Dyskinesia of esophagus
CPT/HCPCS: 74246

== ENCOUNTER 2024-01-27 07:37 | Day surgery (SDC) | payer MEDICARE, SELFPAY ==
[2023-12-08 08:50] VITALS: BMI 31.8
[2024-01-14 08:49] VITALS: BMI 33.0
[2024-01-27 08:27] VITALS: BP 139/81; PULSE 78; RESP 18; TEMP 36.6; O2SAT 97; BMI 34.0
--- NOTE | 2024-01-27 08:38 | WPDANESEPPF ---
Anes - Initial Pre Proc Eval Procedure: Operation Date: 01/27/24 09:30 Proposed Procedures p Esophagogastroduodenoscopy - Mick Gan MD Date/Time: 01/27/24 08:38 Surgeon: Mick Gan MD Pre Op Diagnosis: Gastric Ulcer unspecified as acute or chronic w/o Patient Data Age: 73 Gender: F Height: 1.65 m Weight: 92.7 kg Last Vital Signs Temp 36.6 C 01/27/24 08:27 Pulse 78 01/27/24 08:27 Resp 18 01/27/24 08:27 BP 139/81 01/27/24 08:27 Pulse Ox 97 01/27/24 08:27 O2 Del Method Room Air 01/27/24 08:27 Allergies Allergy/AdvReac Type Severity Reaction Status Date / Time duloxetine [From Cymbalta] AdvReac Severe Vomiting Verified 01/27/24 08:13 Home Medications Medication Instructions Recorded Confirmed Type cholecalciferol (vitamin D3) 50 50 mcg PO DAILY 10/04/20 01/27/24 History mcg (2,000 unit) capsule vit A 7,160 unit-vit C 113 mg-vit 1 tablet PO DAILY 06/04/22 01/27/24 History E 100 pjza-pvfc-tuivou tablet hydroxyzine HCl 25 mg tablet 25 mg PO BID PRN itching #60 tabs 02/26/23 01/27/24 Rx potassium citrate 10 mEq (1,080 10 meq PO BID 03/30/23 01/27/24 History mg) tablet,extended release pantoprazole 40 mg tablet,delayed 40 mg PO QAM #30 tabs 11/29/23 01/27/24 Rx release (Protonix) tramadol 50 mg tablet 50 mg PO Q8H PRN pain #90 tabs 12/13/23 01/27/24 Rx atorvastatin 80 mg tablet (Lipitor) 80 mg PO HS #90 tabs 01/24/24 01/27/24 Rx lorazepam 0.5 mg tablet 0.5 mg PO HS PRN anxiety #30 tabs 01/26/24 01/27/24 Rx Patient hx anesthesia problems: none Family hx anesthesia problems: none Results Review: All pre-operative results and documents have been reviewed as part of the pre-operative evaluation. FORMERLY [facility] Past Medical History Medical History Depression GERD (gastroesophageal reflux disease) History of heart attack on EKG, never had symptoms or intervention Hyperlipidemia IBS (irritable bowel syndrome) Obesity Postmenopausal Renal stones Right ureteral calculus Screening for breast cancer Screening for colon cancer Family History Family History Mother Hypertension Cerebrovascular accident Family history of malignant neoplasm of cervix Father Cerebrovascular accident Malignant neoplasm of prostate Social History Social History Smoking status: Never smoker Second hand tobacco smoke exposure: Yes Alcohol intake: current Drinks per week: 1 Alcohol use details: seldom Substance use: never Substance use type: does not use Lack of Transportation: No Lack of Food: Never True Current Housing: I Have Housing Concerned About Future Housing: No Difficulty Paying Gas/Electric Bills: No Difficulty Paying for Meds: No Currently Unemployed: No Education: High School Diploma/GED Difficulty w/ Childcare or Family Care: No Living arrangements: alone Gender identity (if verbalized by the patient): Female Spiritual care concerns: No Anes - Eval Final PreProcedure Day of Procedure 01/27/24 08:38 Patient weight: obese Heart: regular rate and rhythm Lungs: clear to auscultation Airway: Mallampati scale class II Neurological: alert and oriented Last oral intake: >/= 8 hours ASA classification: III Emergent: no Anesthetic plan: proceed Anesthesia type and monitoring: general GIVS and standard monitoring Results Review: All pre-operative results and documents have been reviewed as part of the pre-operative evaluation. Informed Consent: The patient's anesthetic plan and its attendant risks and benefits were discussed with the patient/family/POA. Questions were solicited and answers provided to the satisfaction of the patient/family/POA.
[2024-01-27] MEDS: LACTATED RINGERS 1,000 ML 150 ML IV CONT (08:41)
--- NOTE | 2024-01-27 08:41 | PM.HPGS ---
History of Present Illness History of Present Illness Consent: Risks, benefits, and alternatives have been discussed and questions answered. Patient agrees to proceed with procedure. Chief complaint: abnormal UGI Narrative: Joy Lyons is a 73 year old female referred for EGD because of abnormal upper GI x-ray. Patient has a long history of heartburn and acid reflux. Is intolerant of Protonix because it gave her diarrhea. She subsequently discontinued this medication. She does take Prilosec intermittently. This controls her heartburn but she does not take it all the time. Patient underwent upper GI in October 2023 because of heartburn and indigestion. As suggested gastric erosions on the lesser curvature of the body of the stomach. Patient denies any bleeding. She has had no difficulty swallowing. Weight has remained stable. A colonoscopy performed in April of 2023 revealed benign colon is. Family history is noncontributory. FORMERLY [facility] Past Medical History Medical History Depression GERD (gastroesophageal reflux disease) History of heart attack on EKG, never had symptoms or intervention Hyperlipidemia IBS (irritable bowel syndrome) Obesity Postmenopausal Renal stones Right ureteral calculus Screening for breast cancer Screening for colon cancer Family History Family History Mother Hypertension Cerebrovascular accident Family history of malignant neoplasm of cervix Father Cerebrovascular accident Malignant neoplasm of prostate Social History Social History Smoking status: Never smoker Second hand tobacco smoke exposure: Yes Alcohol intake: current Drinks per week: 1 Alcohol use details: seldom Substance use: never Substance use type: does not use Lack of Transportation: No Lack of Food: Never True Current Housing: I Have Housing Concerned About Future Housing: No Difficulty Paying Gas/Electric Bills: No Difficulty Paying for Meds: No Currently Unemployed: No Education: High School Diploma/GED Difficulty w/ Childcare or Family Care: No Living arrangements: alone Gender identity (if verbalized by the patient): Female Spiritual care concerns: No Meds Home Medications and Allergies Home Medications Medication Instructions Recorded Confirmed Type cholecalciferol (vitamin D3) 50 50 mcg PO DAILY 10/04/20 01/27/24 History mcg (2,000 unit) capsule vit A 7,160 unit-vit C 113 mg-vit 1 tablet PO DAILY 06/04/22 01/27/24 History E 100 gpgy-evan-tvmzel tablet hydroxyzine HCl 25 mg tablet 25 mg PO BID PRN itching #60 tabs 02/26/23 01/27/24 Rx potassium citrate 10 mEq (1,080 10 meq PO BID 03/30/23 01/27/24 History mg) tablet,extended release pantoprazole 40 mg tablet,delayed 40 mg PO QAM #30 tabs 11/29/23 01/27/24 Rx release (Protonix) tramadol 50 mg tablet 50 mg PO Q8H PRN pain #90 tabs 12/13/23 01/27/24 Rx atorvastatin 80 mg tablet (Lipitor) 80 mg PO HS #90 tabs 01/24/24 01/27/24 Rx lorazepam 0.5 mg tablet 0.5 mg PO HS PRN anxiety #30 tabs 01/26/24 01/27/24 Rx Allergies Allergy/AdvReac Type Severity Reaction Status Date / Time duloxetine [From Cymbalta] AdvReac Severe Vomiting Verified 01/27/24 08:13 Vital Signs Vital Signs - 24 hr 01/27/24 08:27 Temperature 97.8 F Pulse Rate 78 Respiratory Rate 18 Blood Pressure 139/81 Pulse Oximetry 97 Oxygen Delivery Room Air Exam Narrative: Physical exam reveals patient to be alert. Signs stable. HEENT exam is unremarkable. Patient is anicteric. Lungs are clear to auscultation and percussion is without murmur or extra sounds. Abdomen bowel sounds are present soft nontender with no hepatosplenomegaly. Assessment and Plan Assessment and plan (1) Gastric erosion: Code(s): K25.9 - Gastric ulcer, unspecified as acute or chr
[2024-01-27 09:30] VITALS: BP 93/63; PULSE 71; RESP 16; O2SAT 97
--- NOTE | 2024-01-27 09:45 | WPDANESPN ---
Anes - Prog Note Post-Op Date/Time: 01/27/24 09:45 Cardiovascular status: normal Respiratory status: normal Airway patency: baseline Mental status: baseline Post-Op hydration status: normal Vital Signs: Last Vital Signs Temp 36.6 C 01/27/24 08:27 Pulse 78 01/27/24 08:27 Resp 18 01/27/24 08:27 BP 139/81 01/27/24 08:27 Pulse Ox 97 01/27/24 08:27 O2 Del Method Room Air 01/27/24 08:27 Pain Score (VAS): 0/10 I/O: Intake & Output 01/26/24 01/27/24 01/27/24 23:59 07:59 15:59 Intake Total 200 Balance 200 Patient Feedback: Patient satisfied with anesthetic care.
[2024-01-27 09:46] VITALS: BP 107/62; PULSE 74; RESP 20; O2SAT 98
[2024-01-27 09:57] VITALS: BP 127/58; PULSE 74; RESP 20; O2SAT 97
== END 2024-01-27 10:07 | disposition home or self-care (01) ==
PROVIDERS: PCP Nurse Practitioner; Visit Provider Internal Medicine Gastroenterology
PROC: 0DJ08ZZ Inspection of Upper Intestinal Tract, Via Natural or Artificial Opening Endoscopic (ICD-10-PCS; CPT 43235; principal; 2024-01-27 09:30)
DX: R12 Heartburn (principal); K30 Functional dyspepsia; K44.9 Diaphragmatic hernia without obstruction or gangrene
CPT/HCPCS: 43239

== ENCOUNTER 2024-11-29 10:36 | Outpatient (CLI) | payer MEDICARE, SELFPAY ==
[2024-11-29 11:08] LABS: Mean Corpuscular HGB Conc 32.5 g/dl (32-36); Mean Corpuscular Hemoglobin 30.4 pg (26-34); Mean Corpuscular Volume 93.7 fl (80-100); Mean Platelet Volume 9.6 fl (7.4-10.4); Platelet Count Result 243 k/mm3 (150-375); Red Blood Count 4.27 M/mm3 (4.2-5.4); Red Cell Distribution Width 13.2 % (11.5-14.5)
[2024-11-29 11:15] LABS: Alanine Aminotransferase 28 U/L (6-35); Albumin Level 4.2 g/dL (3.5-5.1); Alkaline Phosphatase 125 U/L (38-126); Anion Gap 10 mmol/L (4-12); Aspartate Amino Transferase 29 U/L (14-36); Bilirubin,Total 0.8 mg/dL (0.2-1.3); Blood Urea Nitrogen 19 mg/dL (7-17); Carbon Dioxide 24 mmol/L (22-30); Chloride 108 mmol/L (98-107); Cholesterol 160 mg/dL (0-200); Estimated Glomerular Filt Rate > 60; Glucose 106 mg/dL (65-110); HDL Direct 57 mg/dL; Potassium 4.5 mmol/L (3.4-5.0); Sodium 142 mmol/L (137-145); Triglycerides 117 mg/dL (<150)
[2024-11-29 11:26] LABS: LDL Cholesterol Direct 82 mg/dL
--- OUTSIDE RECORDS SUMMARY | 2024-11-29 11:35 | XMS_ITS | Clinical Summary ---
Author Organization [facility] Address [address] [place] [address]. [place], [place] [id number] [place] [id number] Care Team Providers Care Doctor Of Radiology Name Role Phone Alan Pelaez DO Primary Care Provider Allergies No known active allergies Medications atorvastatin (LIPITOR) 10 MG tablet Take 1 tablet (10 mg total) by mouth nightly at bedtime. Active Active Problems No known active problems Social History Tobacco Use Types Packs/Day Years Used Date Smoking Tobacco: Never Assessed Tobacco Cessation:Counseling Given: No Comments Unknown Sex and Gender Information Value Date Recorded Sex Assigned at Not on file Legal Sex Female 7:57 AM CDT Gender Identity Not on file Sexual Orientation Not on file Last Filed Vital Signs Vital Sign Reading Time Taken Comments Blood Pressure 112/60 02/19/2023 11:13 AM CDT Pulse 105 02/19/2023 11:13 AM CDT Temperature 36.9 ??C (98.5 ??F) 02/19/2023 11:13 AM C DT Respiratory Rate 16 02/19/2023 11:13 AM CDT Oxygen Saturation 95% 02/19/2023 11:13 AM CDT Inhaled Oxygen Concentration - - Weight 89.4 kg (197 lb) 02/19/2023 11:13 AM CDT Height 167.6 cm (5' 6 ) 02/19/2023 11:13 AM CDT Body Mass Index 31.8 02/19/2023 11:13 AM CDT Plan of Treatment Health Maintenance Due Date Last Done Comments Colorectal Cancer Screening Colonoscopy (10 Years) 1950 PHQ-2 (Physician Ramona) 1962 Hepatitis C 1968 DTaP, Tdap and Td Vaccines (1 - Tdap) 1969 Mammogram Screening 1990 Annual Medicare Wellness Visit 2015 Dexa Scan (General) 2015 COVID-19 Vaccine ( season) 2024 09/15/2021, 12/20/2020, 11/22/2020 Influenza Adult (#1) 2024 07/06/2019, 08/15/2018, 09/13/2016, Additional history exists PHQ-2 (Physician Ramona) 11/01/2024 RSV Immunization or 60+ Years (1 - 1-dose 75+ series) 2025 Pneumococcal Vaccine: 65+ Years Completed 07/04/2020, 07/06/2019, 09/13/2016 Zoster Vaccines Completed 10/22/2021, 06/06/2021 Meningococcal B Vaccine Aged Out No l onger eligible based on patient's age to complete this topic Meningococcal Vaccine Aged Out No concha nirav eligible based on patient's age to complete this topic RSV Immunizations Under 20 Months Aged Out No longer eligible based on patient's age to complete this topic Insurance Care Teams Doctor Of Radiology Relationship Specialty Start Date End Date Alan Pelaez DO [address] [place] [address] [phone] PCP - General INTERNAL MEDICINE 06/01/22
--- OUTSIDE RECORDS SUMMARY | 2024-11-29 11:36 | XMS_ITS | Referral Summary ---
Author Organization [facility] Address [address] [place] [address] Care Team Providers Care Photolithographer Name Role Phone Doroteo Fowler MD Primary Care Provider [phone] Source Comments [facility],non-owned Affiliates and Associated Physician Practices is amultiple site organization consisting of ambulatory clinics and hospital sitesin [place], [place], [place] and [place]. This disclosure is being madepursuant to the Care Everywhere program and may not contain all information available regarding this patient. Last updated 18.[facility] [employer] Active Problems Problem Noted Date Diagnosed Date Closed displaced fracture of head of radius 03/2012 Dislocation of ulnohumeral joint 05/05/2012 Social History Tobacco Use Types Packs/Day Years Used Date Smoking Tobacco: Never Alcohol Use Standard Drinks/Week Comments No 0 (1 standard drink = 0.6 oz pur e alcohol) Sex and Gender Information Value Date Recorded Sex Assigned at Not on file Gender Identity Not on file Sexual Orientation Not on file Plan of Treatment Not on file Care Teams Photolithographer Relationship Specialty Start Date End Date Doroteo Fowler MD [address] [place] [id number] PCP - General 05/06/12
--- OUTSIDE RECORDS SUMMARY | 2024-11-29 11:36 | XMS_ITS | Patient Health Summary ---
Author Organization [facility] [employer] Address [address] [place] [address] Care Team Providers Care Environmental Intern Name Role Phone Doroteo Fowler MD Primary Care Provider [phone] Note from [facility],non-owned Affiliates and Associated Physician Practices is amultiple site organization consisting of ambulatory clinics and hospital sitesin [place], [place], [place] and [place]. This disclosure is being madepursuant to the Care Everywhere program and may not contain all information available regarding this patient. Last updated 18.[facility] Active Problems Problem Noted Date Diagnosed Date [...] on file Sexual Orientation Not on file Procedures * XR ELBOW RIGHT 3VW OR MORE(Performed 08/16/2012) * XR ELBOW RIGHT 3VW OR MORE(Performed 07/05/2012) * XR ELBOW RIGHT 3VW OR MORE(Performed 05/31/2012) * XR ELBOW RIGHT 2VW(Performed 05/12/2012) * XR ELBOW RIGHT 3VW OR MORE(Performed 05/12/2012) * PT-INR [facility](Performed 05/03/2012) * CBC W AUTO DIFFERENTIAL(Performed 05/03/2012) * XR ELBOW RIGHT 3VW OR MORE(Performed 05/02/2012) * FL GARETH SURGERY(Performed 05/02/2012) * PT-INR [facility](Performed 05/02/2012) * CBC W AUTO DIFFERENTIAL(Performed 05/02/2012) * BASIC METABOLIC PANEL (CALCIUM TOTAL)(Performed 05/02/2012) * URINALYSIS W/MICROSCOPIC NO CULTURE(Performed 05/02/2012) * CULTURE URINE(Performed 05/02/2012) * XR ELBOW RIGHT 3VW OR MORE(Performed 05/02/2012) * XR ELBOW RIGHT 3VW OR MORE(Performed 05/01/2012) Results * XR ELBOW RIGHT 3VW OR MORE (08/16/2012 11:26 AM CDT) Only the most recent of7 resultswithin the time period is included. Anatomical Region Laterality Modality Upper Extremity Other Impressions 08/16/2012 2:48 PM CDT IMPRESSION: Status post radial head arthroplasty and ligamentous reconstruction without evidence of interval complication. Dr. CRISTIAN Zeng M.D. have personally reviewed and interpreted this examination/study. This report was electronically signed by CRISTIAN GONZALEZ M.D. ??on 08/16/2012 2:48 PM . Narrative 08/16/2012 2:48 PM CDT EXAMINATION: Right elbow, 3 views HISTORY: Fracture or dislocation COMPARISON: 07/05/2012 FINDINGS: The patient is status post radial head arthroplasty with capsular ligamentous reconstruction. There is no interval change in osseous alignment. The surgical hardware is intact. Bone production is seen adjacent to the radial head prosthetic. There is no soft tissue swelling or joint effusion. Procedure Note Cristian Gonzalez MD - 01/30/2018 EXAMINATION: Right elbow, 3 views HISTORY: Fracture or dislocation COMPARISON: 07/05/2012 FINDINGS: The patient is status post radial head arthroplasty withcapsular ligamentous reconstruction. There is no interval change inosseous alignment. The surgical hardware is intact. Bone production isseen adjacent to the radial head prosthetic. There is no soft tissue swelling or joint effusion. IMPRESSION IMPRESSION: Status post radial head arthroplasty and ligamentous reconstructionwithout evidence of interval complication. Dr. CRISTIAN Zeng M.D. have personally reviewed and interpreted thisexamination/study. This report was electronically signed by CRISTIAN GONZALEZ M.D. on 08/16/20122:48 PM . Samuel Wetzel MD DIAGNOSTIC IMAGING [facility] [place] * XR ELBOW RIGHT 2VW (05/12/2012 10:13 AM CDT) Anatomical Region Laterality Modality Upper Extremity Other Impressions 05/12/2012 5:00 PM CDT IMPRESSION: 1. Braced, right radial head arthroplasty in unchanged alignment. This examination has been personally reviewed and interpreted by Rabia Best M.D. ??(attending radiologist) . Report dictated by Dolores Perez M.D. (resident). Narrative 05/12/2012 5:00 PM CDT EXAMINATION: Right elbow two views HISTORY: ??61-year-old female with elbow fracture COMPARISON: ??Right elbow radiograph ??from 05/12/2012 at 8:56 a.m. FINDINGS: A right radial head arthroplasty and suture anchor in the lateral epicondyle appear unchanged in position and the alignment of the elbow is unchanged. A splint has been removed and brace applied. Procedure Note Rabia Best MD - 01/30/2018 EXAMINATION: Right elbow two views HISTORY: 61-year-old female with elbow fracture COMPARISON: Right elbow radiograph from 05/12/2012 at 8:56 a.m. FINDINGS: A right radial head arthroplasty and suture anchor in thelateral epicondyle appear unchanged in position and the alignment of theelbow is unchanged. A splint has been removed and brace applied. IMPRESSION IMPRESSION: 1. Braced, right radial head arthroplasty in unchanged alignment. This examination has been personally reviewed and interpreted by Milagros Daniels (attending radiologist) . Report dictated by Dolores Johnson M.D. (resident). Samuel Wetzel MD DIAGNOSTIC IMAGING [facility] [place] * PT-INR [facility] (05/03/2012 3:08 AM CDT) Only the most recent of2 resultswithin the time period is included. PT 13.9 12.1 - 14.8 SECONDS [facility] INR 1.1 [facility] Comment: SUGGESTED THERAPEUTIC RANGE FOR LOW-INTENSITY COUMADIN THERAPY FOR VENOUS THROMBOEMBOLISM IS INR 2.0-3.0. ??FOR HIGH RISK PATIENTS (MITRAL VALVE PROSTHESIS, ATRIAL FIBRILLATION, HISTORY OF TIA/STROKE), SUGGESTED THERAPEUTIC RANGE IS INR 2.5-3.5. Plasma specimen (specimen) 05/03/2012 3:08 AM CDT 05/03/2012 3:18 AM CDT Narrative [facility] - 05/03/2012 3:18 AM CDT Is patient on Heparin, Argatroban or Dabigatran?->N Historical Provider LAB - COAGULATION ORDERABLES Performing Organization Address City/State/[facility] Co de Phone Number [address] [phone] * (ABNORMAL) CBC W AUTO DIFFERENTIAL (05/03/2012 3:08 AM CDT) Only the most recent of2 resultswithin the time period is included. WBC 12.9(H) 3.5 - 10.5 10^3/uL [facility] RBC 4.00 3.90 - 5.00 10^6/uL [facility] Hemoglobin 12.1 12.0 - 15.5 g/dL [facility] Hematocrit 36.0 35.0 - 45.0 % [facility] MCV 90.0 81.0 - 97.0 FL [facility] MCH 30.3 28.0 - 34.0 PG [facility] MCHC 33.6 32.0 - 36.0 G/DL [facility] Platelet 234 150 - 400 10^3/uL [facility] RDW 13.0 11.2 - 14.8 % [facility] RDW-SD 42.5 36 - 50 FL [facility] MPV 9.8 9.3 - 12.8 FL [facility] Neutrophils % 79.5(H) 35.0 - 70.0 % [facility] Lymphocytes % 14.0(L) 19.7 - 55.1 % [facility] Monocytes % 6.4 3 - 15 % [facility] Eosinophils % 0.0 0.0 - 6.0 % [facility] Basophils % 0.1 0.0 - 1.5 % [facility] Neutrophils Absolute 10.3(H) 1.7 - 7.0 10^3/uL [facility] Lymphocyte Absolute 1.8 0.8 - 2.9 10^3/uL [facility] Monocytes Absolute 0.8(H) 0.14 - 0.66 10^3/uL [facility] Eosinophils Absolute 0.00 0.00 - 0.22 10^3/uL [facility] Basophils Absolute 0.01(L) 0.02 - 0.06 10^3/uL [facility] Differential Type AUTO DIFFERENTIAL [facility] Venous blood specimen (specimen) 05/03/2012 3:08 AM CDT 05/03/2012 3:18 AM CDT Historical Provider LAB - HEMATOLOGY ORDERABLES Performing Organization Address City/State/[facility] Co de Phone Number [facility] [address] [place] [address] * [place] GARETH SURGERY (05/02/2012 2:14 PM CDT) Anatomical Region Laterality Modality Other Narrative 05/02/2012 2:15 PM CDT Fluoroscopy was used for this exam. Please see the Operative report. Procedure Note ProviderBrigitte MD - 01/30/2018 Fluoroscopy was used for this exam. Please see the Operative report. Maria Luz Jerez MD FLUOROSCOPY ORDERAB LES * (ABNORMAL) BASIC METABOLIC PANEL (CALCIUM TOTAL) (05/02/2012 3:20 AM CDT) BUN 13 7 - 26 mg/dL [facility] Creatinine 1.1 0.6 - 1.2 mg/dL [facility] eGFR by MDRD 50 ML/MIN [facility] Comment: Chronic kidney disease: ??<60 ml/min Kidney failure: ?<15 ml/min Based on BSA of 1.73m2. Sodium 140 136 - 145 mmol/L [facility] Potassium 3.8 3.5 - 4.5 mmol/L [facility] Chloride 110(H) 98 - 107 mmol/L [facility] CO2 19(L) 22 - 29 mmol/L [facility] Glucose 127(H) 70 - 115 mg/dL [facility] Calcium 8.3(L) 8.4 - 10.2 mg/dL [facility] Anion Gap 15 8 - 18 [facility] BUN/Creatinine Ratio 11 7 - 23 [facility] Osmolality Calculation 276 270 - 300 mOsm/kg [facility] Venous blood specimen (specimen) 05/02/2012 3:20 AM CDT 05/02/2012 3:38 AM CDT Historical Provider LAB - CHEMISTRY O RDERABLES [address] [phone] * (ABNORMAL) URINALYSIS W/MICROSCOPIC NO CULTURE (05/02/2012 2:05 AM CDT) Color UA YELLOW STRW,YELLOW [facility] Clarity UA CLEAR CLEAR [facility] Specific [place] Urine 1.010 1.001 - 1.030 [facility] pH UA 7.5 5.0 - 8.0 [facility] Protein UA NEGATIVE <20 mg/dL [facility] Glucose UA NEGATIVE NEGATIVE mg/dL [facility] Ketones TRACE(A) NEGATIVE mg/dL [facility] Bilirubin UA NEGATIVE NEGATIVE mg/dL [facility] Blood UA NEGATIVE NEGATIVE [facility] Nitrite UA NEGATIVE NEGATIVE [facility] Leukocyte Esterase NEGATIVE NEGATIVE [facility] Urobilinogen UA < 2.0 <2.0 mg/dL [facility] RBC Urine < 1 0 - 8 /HPF [facility] WBC Urine 1 0 - 2 /HPF [facility] Squamous Epithelial Cells UA < 1 0 - 1 /HPF [facility] Mucus Urine OCCASIONAL( A) NONE SEEN /LPF [facility] Urine specimen (specimen) URINE SPECIMEN COLLECTION, CATHETERIZED / Unknown 05/02/2012 2:05 AM CDT 05/02/2012 3:14 AM CDT Historical Provider LAB - URINALYSIS ORDERABLES Performing Organization Address City/[facility]/[place] [address], [facility] [phone] * CULTURE URINE (05/02/2012 2:05 AM CDT) Culture Urine NO GROWTH OF >100 CFU/ML AFTER 48 HOURS. [facility] Urine specimen (specimen) URINE SPECIMEN COLLECTION, CATHETERIZED / Unknown 05/02/2012 2:05 AM CDT 05/02/2012 3:14 AM CDT Narrative [facility] - 05/02/2012 3:14 AM CDT Specimen Type->Urine Historical Provider LAB - MICROBIOLOG Y ORDERABLES Performing Organization Address [facility] Co de Phone Number [address] [phone] Care Teams Environmental Intern Relationship Specialty Start Date End Date Doroteo Fowler MD [address] [place] [id number] PCP - General 05/06/12
--- OUTSIDE RECORDS SUMMARY | 2024-11-29 11:36 | XMS_ITS | Clinical Summary ---
Author Organization [facility] [employer] Address [address] [place] [address] Care Team Providers Care Sales Agent Casualty Insurance Name Role Phone Doroteo Fowler MD Primary Care Provider [phone] Source Comments [facility],non-owned Affiliates and Associated Physician Practices is amultiple site organization consisting of ambulatory clinics and hospital sitesin [place], [place], [place] and [place]. This disclosure is being madepursuant to the Care Everywhere program and may not contain all information available regarding this patient. Last updated 18.[facility] [employer] Active Problems Problem Noted Date Diagnosed Date Closed displaced fracture of head of radius 03/2012 Dislocation of ulnohumeral joint 05/05/2012 Family History Medical History Relation Name Comments CVA Father Status: d Cancer Father CVA Mother Heart Disease Mother Status: Deceas ed Hypertension Mother Cancer Paternal Grandfather Cancer Paternal Grandmother Relation Name Status Comments Father Mother Paternal Grandfather Paternal Grandmother Social History Tobacco Use Types Packs/Day Years Used Date Smoking Tobacco: Never Alcohol Use Standard Drinks/Week Comments No 0 (1 standard drink = 0.6 oz pur e alcohol) Sex and Gender Information Value Date Recorded Sex Assigned at Not on file Gender Identity Not on file Sexual Orientation Not on file Plan of Treatment Health Maintenance Due Date Last Done Comments BONE DENSITY TESTING 1950 COLOGUARD (AGES 45-75) - COL ON CA SCREENING 1950 COLON MONITORING 1950 COLONOSCOPY - COLON CA SCREENING 1950 CT COLONOGRAPHY - COLON CA SCREENING 1950 Colorectal Cancer Screening 1950 FIT - COLON CA SCREENING 1950 FLEX SIG - COLON CA SCREENING 1950 LIPID TESTING 1950 MAMMOGRAM 1950 HEPATITIS C SCREENING 09/30/1968 DTAP/TDAP/TD VACCINES (1 - Tdap) 1969 PNEUMOCOCCAL VACCINE 50+ (1 of 1 - PCV) 2000 ZOSTER VACCINE (1 of 2) 2000 COVID-19 VACCINE (1 - 2023-2 5 season) 2024 INFLUENZA VACCINE (#1) 2024 DEPRESSION SCREENING 11/01/2024 MEDICARE AWV ? CALENDAR YEAR 2024 Respiratory Syncytial Virus (RSV) Vaccine Pt: or over 60 yrs (1 - 1-dose 75+ series) 2025 HEPATITIS B VACCINE Aged Out No longe r eligible based on patient's age to complete this topic HIB VACCINE Aged Out No longer eligi ble based on patient's age to complete this topic HPV VACCINE Aged Out No longer eligi ble based on patient's age to complete this topic MENINGOCOCCAL (Group B) VACCINE Aged Out No longer eligible based on patient's age to complete this topic MENINGOCOCCAL VACCINE Aged Out No concha nirav eligible based on patient's age to complete this topic Care Teams Sales Agent Casualty Insurance Relationship Specialty Start Date End Date Doroteo Fowler MD [address] [place] [id number] [facility] - General 05/06/12
[2024-11-29 12:25] LABS: Free T4 Free Thyroxine 1.15 ng/dL (0.78-2.19)
== END 2024-11-29 10:37 | disposition home or self-care (01) ==
LOC: ANHLAB 10:37
PROVIDERS: PCP Nurse Practitioner; Visit Provider Nurse Practitioner
DX: E78.5 Hyperlipidemia, unspecified (principal); R53.83 Other fatigue
CPT/HCPCS: 36415; 80053; 80061; 84439; 84443; 85027